=== PATIENT | female | born 1990 | race Two or more races ===

== ENCOUNTER 2019-11-27 11:23 | Emergency (ER) | payer SELFPAY ==
[2019-11-27 11:27] VITALS: BP 124/76; PULSE 94; RESP 20; TEMP 36.6; O2SAT 98
[2019-11-27] MEDS: IBUPROFEN 600 MG TABLET PO (11:54)
--- NOTE | 2019-11-27 11:54 | ED.GENADULT ---
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 Patient has not been seen for this complaint Review of Systems Review of Systems: All systems reviewed & are unremarkable except as noted in HPI and below PMFSH Social History Social History (Updated 11/27/19 @ 11:55 by Ab Segovia PA-C) Smoking status: Never smoker Gender identity (if verbalized by the patient): Female Exam Narrative: Exam Narrative: GENERAL: Well-appearing, well-nourished, and in no acute distress. HEAD: Normocephalic, atraumatic. EYES: PERRLA and EOMI. ENT: Nares clear, no rhinorrhea or epistaxis. Mucous membranes moist. Oropharynx without tonsillar hypertrophy exudate or other lesions. Left-sided facial swelling with tenderness along the gumline. Floor of the mouth is soft uvula midline NECK: Supple. No adenopathy or masses. CHEST: Clear to auscultation. No respiratory distress. No wheezes rales or rhonchi HEART: Regular rate and rhythm. No murmur heard. EXTREMITIES: Normal range of motion. No edema. SKIN: Warm, dry, no rash. NEURO: No focal deficits. Alert and oriented x3. PSYCH: Normal mood and affect. Course Course Emergency Course: Patient in the room in no distress aware of case findings treatment plan and diagnosis agreeing to follow-up as directed Vital Signs Vital signs: Vital Signs Temperature 97.8 F 11/27/19 11:27 Pulse Rate 94 11/27/19 11:27 Respiratory Rate 11/27/19 11:27 Blood Pressure 124/76 11/27/19 11:27 Pulse Oximetry 98 11/27/19 11:27 Temperature 97.8 F 11/27/19 11:27 Pulse Rate 94 11/27/19 11:27 Respiratory Rate 11/27/19 11:27 Blood Pressure 124/76 11/27/19 11:27 Pulse Oximetry 98 11/27/19 11:27 Procedures Abscess I/D face: Date of Incision: 11/27/19 Time of Incision: 11:58 Side (if applicable): left Technique: other (18-gauge needle) Irrigation: No Packing used?: none I&D Results: Pus and Blood Complications: pain Medical Decision Making MDM Narrative Medical decision making narrative: Patients pain and complaint coupled with physical findings are consistent with dentalgia. There are no focal signs of space occupying lesions that are compromising to the ariway. The floor of the mouth is soft with no signs of Ludwigs Angina. Patient is without trismus or drooling and able to swallow secretions. Patient is felt appropriate for discharge home with dental follow up. Vital Signs Vital Signs: Vital Signs Temperature 97.8 F 11/27/19 11:27 Pulse Rate 94 11/27/19 11:27 Respiratory Rate 11/27/19 11:27 Blood Pressure 124/76 11/27/19 11:27 Pulse Oximetry 98 11/27/19 11:27 Temperature 97.8 F 11/27/19 11:27 Pulse Rate 94 11/27/19 11:27 Respiratory Rate 11/27/19 11:27 Blood Pressure 124/76 11/27/19 11:27 Pulse Oximetry 98 11/27/19 11:27 Discharge Plan Discharge Clinical Impression: Dental abscess Patient Disposition: Home, Self-Care Condition: Stable Instructions: Antibiotic Form, Dental Abscess (ED) Additional Instructions: Follow-up with dentistry in the next 7 days. Go to ER for shortness of breath, difficulty breathing, chest pain, fever/chills, weakness, nauseau/vomitting, unable to swallow or open the mouth etc. or any other concerns. Take any prescribed medications as directed. If you do not have a drug allergy to tylenol or motrin and can tolerate it then take tylenol or motrin as
[2019-11-27 12:39] VITALS: BP 131/81; PULSE 91; RESP 18; TEMP 36.7; O2SAT 99
== END 2019-11-27 12:56 | disposition home or self-care (01) ==
LOC: ANHED 12:15
PROVIDERS: Emergency Provider Emergency Medicine
DX: K04.7 Periapical abscess without sinus (principal)
CPT/HCPCS: 41800; 99283; A9270

== ENCOUNTER 2019-11-27 23:29 | Emergency (ER) | payer SELFPAY ==
[2019-11-27 23:33] VITALS: BP 118/65; PULSE 92; RESP 18; TEMP 36.8; O2SAT 99
[2019-11-27] MEDS: PENICILLIN V POTASSIUM 250 MG TABLET 500 MG PO (23:54)
--- NOTE | 2019-11-28 00:01 | ED.DENTAL ---
HPI - Dental/Oral General Chief complaint: Dental/Oral Stated complaint: dental pain Time Seen by Provider: 11/27/19 23:42 History of Present Illness HPI Narrative: Patient returns to the ED for pain medication and an antibiotic. She was seen here yesterday and was given prescription for antibiotics and pain pills, but went home and fell asleep. When she woke up the pharmacy was already closed. The pain continues, and she requests pain management. I offered to refer her to a dentist, but she says she does not live here and she is only been to be here for a week. Related Data Allergies Allergy/AdvReac Type Severity Reaction Status Date / Time No Known Allergies Allergy Verified 11/27/19 12:00 Review of Systems Review of Systems: All systems reviewed & are unremarkable except as noted in HPI and below PMFSH Past Medical History Medical History (Updated 11/28/19 @ 00:03 by Monica Santana MD) Dental abscess Facial cellulitis Social History Social History (Updated 11/27/19 @ 11:55 by Ab Segovia PA-C) Smoking status: Never smoker Gender identity (if verbalized by the patient): Female Exam Narrative: Exam Narrative: GENERAL: well-nourished, and in no acute distress. Left face moderately swollen, with tenderness HEAD: Normocephalic, atraumatic. EYES: PERRLA and EOMI. ENT: Nares clear, no rhinorrhea or epistaxis. Mucous membranes moist. NECK: Supple. CHEST: Clear to auscultation. No respiratory distress. HEART: Regular rate and rhythm. No murmur heard. Normal peripheral pulses. ABDOMEN: Soft, nontender, nondistended, normal active bowel sounds. EXTREMITIES: Normal range of motion. No edema. SKIN: Warm, dry, no rash. NEURO: No focal deficits. Alert and oriented x3. PSYCH: Normal mood and affect. Course Vital Signs Vital signs: Vital Signs Temperature 98.3 F 11/27/19 23:33 Pulse Rate 92 11/27/19 23:33 Respiratory Rate 18 11/27/19 23:33 Blood Pressure 118/65 11/27/19 23:33 Pulse Oximetry 99 11/27/19 23:33 Temperature 98.3 F 11/27/19 23:33 Pulse Rate 92 11/27/19 23:33 Respiratory Rate 18 11/27/19 23:33 Blood Pressure 118/65 11/27/19 23:33 Pulse Oximetry 99 11/27/19 23:33 MDM - Dental/Oral Differential Diagnosis Differential diagnosis: Likely dental caries, toothache and dental abscess Medical Records Attestation: I reviewed the patient's medical records. Discharge Plan Discharge Clinical Impression: Facial cellulitis, Dental abscess Patient Disposition: Home, Self-Care Condition: Improved Additional Instructions: Call Dr. Rosado this week for your bad tooth. [phone] Prescriptions: New hydrocodone-acetaminophen [[place]] 5-325 mg tablet 1 tablet PO Q4H PRN (Reason: pain) Qty: 10 RF: 0 No Action amoxicillin 500 mg capsule 500 mg PO TID 10 Days Qty: 30 RF: 0 chlorhexidine gluconate [Peridex] 0.12 % mouthwash 15 ml MUCOUS MEM BID Qty: 1500 RF: 0 ibuprofen [IBU] 600 mg tablet 600 mg PO QID PRN (Reason: fever or pain) Qty: 10 RF: 0 Follow-up/Referrals: Shahbaz Gannon Jr., MD [Physician] - (Call to establish care with a primary care physician) UNKNOWN,DOCTOR [Primary Care Provider] - Stand Alone Forms: Work/School Release IP Time of Disposition: 00:01
[2019-11-28] MEDS: MORPHINE SULFATE 10 MG/ML AMP IM (00:02)
[2019-11-28 00:26] VITALS: BP 132/70; PULSE 70; RESP 18; O2SAT 98
== END 2019-11-28 00:27 | disposition home or self-care (01) ==
LOC: ANHED 11-28 00:05
PROVIDERS: Emergency Provider Emergency Medicine
DX: L03.211 Cellulitis of face (principal); K04.7 Periapical abscess without sinus
CPT/HCPCS: 96372; 99283; A9270; J2270